=== PATIENT | female | born 1970 | race Two or more races ===

== ENCOUNTER → 2024-05-17 | Outpatient (CLI) | payer MEDICAID, SELFPAY ==
--- NOTE | 2024-05-17 09:00 | XR_ITS ---
Examination: Screening digital mammography, bilateral Computer aided detection 3-D breast Tomosynthesis, bilateral Date and time of exam: May 17, 2024 0906 hours Indication: Screening, family history, sister, breast cancer Technique: Nonmagnified MLO, CC views of the breasts to been obtained, reconstructed from 3-D Tomosynthesis images. R2 computer aided detection program utilized for evaluation of suspicious masses and/or abnormal calcifications. 3-D Tomosynthesis images obtained. Findings: Scattered areas of fibroglandular density 12 mm focal asymmetry upper outer left breast 6 mm focal asymmetry slightly outer left breast CC view posterior depth, 7.2 cm from the nipple Impression: BI-RADS Category 0: Incomplete: Need additional imaging evaluation 12 mm focal asymmetry upper outer left breast, recommend follow-up spot tomographic views 6 mm focal asymmetry slightly outer left breast posterior depth, recommend spot tomographic views upper outer quadrant left breast posterior depth, recommend left breast sonography to complete the workup
== END | disposition home or self-care (01) ==
PROVIDERS: Referring Provider Physician Assistant; Visit Provider Physician Assistant
DX: Z12.31 Encounter for screening mammogram for malignant neoplasm of breast (principal); R92.8 Other abnormal and inconclusive findings on diagnostic imaging of breast; N64.89 Other specified disorders of breast
CPT/HCPCS: 77063; 77067

== ENCOUNTER 2024-05-19 18:18 | Emergency (ER) | payer MEDICAID, SELFPAY ==
[2024-05-19 19:01] VITALS: BP 121/80; PULSE 83; RESP 16; TEMP 37.1; O2SAT 95; BMI 37.2
--- NOTE | 2024-05-19 19:11 | XR_ITS ---
Examination: Ribs, left, with PA chest, 5 views Technique: Chest PA, RIBS AP, RPO, LPO, AP coned lower ribs 5 views Exam date and time: May 19, 2024 1917 hrs. Indications: Patient fell today with injury to the left chest, left rib pain Findings: Normal heart size No pneumothorax No acute rib fractures Impression: No pneumothorax, pulmonary contusion or hemothorax No acute rib fractures depicted
--- NOTE | 2024-05-19 19:13 | PD.EDCHEST ---
ED Chest Pain RME/HPI General Chief Complaint: General Adult/Misc Complain Stated Complaint: LEFT SIDE PAIN S/P FALL AT 1600 Time Seen by Provider: 05/19/24 18:42 Arrival date/time: 05/19/24 18:18 53F with history of DM presents to ED with L side/lower rib pain after slipping off off stool today. Patient denies hitting her head/neck as well as gait abnormality. Patient also denies N/V. Limitations: no limitations Related Data Previous Rx's ?Medication ?Instructions ?Recorded metformin 500 mg tablet 500 mg PO BID #30 tabs 05/07/18 albuterol sulfate 90 mcg/actuation 2 puff inhalation QID PRN 05/22/19 aerosol inhaler shortness of breath or wheezing #18 grams cetirizine 10 mg tablet (Zyrtec) 10 mg PO QDAY allergies #30 tabs 05/22/19 metformin 500 mg tablet 500 mg PO BID #60 tabs 05/22/19 ibuprofen 600 mg tablet 600 mg PO QID #30 tabs 05/01/22 sulfamethoxazole 800 1 tab PO BID PRN cellulitis #10 05/01/22 mg-trimethoprim 160 mg tablet tabs (Bactrim DS) ibuprofen 600 mg tablet 600 mg PO TID PRN pain #30 tabs 03/24/23 Allergies Allergy/AdvReac Type Severity Reaction Status Date / Time No Known Allergies Allergy Verified 05/19/24 18:21 Review of Systems Review of Systems Systems Reviewed: All systems reviewed, normal except as documented Constitutional Constitutional: Reports system reviewed and no additional complaints, except as documented, Denies fever(s) and Denies headache(s) ENT Ears, Nose, Mouth, and Throat: Denies disequilibrium and Denies headache(s) Cardiovascular Cardiovascular: Reports system reviewed and no additional complaints, except as documented, Denies chest pain and Denies dyspnea Respiratory Respiratory: Reports system reviewed and no additional complaints, except as documented, Denies cough and Denies dyspnea Gastrointestinal Gastrointestinal: Reports system reviewed and no additional complaints, except as documented, Denies abdominal pain, Denies nausea and Denies vomiting Genitourinary Genitourinary: Reports as per HPI and Reports flank pain Neurologic Neurologic: Reports system reviewed and no additional complaints, except as documented, Denies confusion, Denies disequilibrium and Denies headache(s) Psychiatric Psychiatric: Denies confusion Past Medical History Past Medical History CARDIAC: Negative Congestive Heart Failure RESPIRATORY: Negative Chronic Obstructive Pulmonary Disease (COPD) GENITOURINARY: Negative Renal Disease ENDOCRINE: Negative Diabetes Mellitus Type 1 or Diabetes Mellitus Type 2 Surgical History SURGICAL: Positive Section Social History SMOKING STATUS: Never smoker ED Exam General Limitations: Present no limitations General appearance: Present alert and in no apparent distress Head Head exam: Present atraumatic Eye Eye exam: Present normal appearance, PERRL and EOMI ENT ENT exam: Present normal exam, normal oropharynx and mucous membranes moist Neck Neck exam: Present normal inspection, full ROM and trachea midline Chest Chest inspection: Present symmetric chest wall rise and tenderness (L lower rib) Respiratory Respiratory exam: Present normal lung sounds bilaterally Cardiovascular Cardiovascular exam: Present regular rate, normal rhythm and normal heart sounds Abdominal Exam Abdominal exam: Present soft and normal bowel sounds Extremities Exam Extremities exam: Present normal inspection and full ROM Back Exam Back exam: Present normal inspection and full ROM Neurological Exam Neurological exam: Present alert, oriented X3 and CN II-XII intact Psychiatric Psychiatric exam: Present normal affect and normal mood Skin Skin exam: Present warm, dry, intact and normal color Course Quality Measures none Orders Category Date Time Status CT chest wo con Stat Exams 05/19/24 19:40 Completed XR ribs LT min 3V w CXR1V Stat Exams 05/19/24 19:11 Completed Vital Signs Vital signs: Vital Signs Temperature 98.7 F 05/19/24 19:01 Pulse Rate 83 05/19/24 19:01 Respiratory Rate 16 05/19/24 19:01 Blood Pressure 121/80 05/19/24 19:01 Pulse Oximetry (%) 95 05/19/24 19:01 Oxygen Delivery Method Room Air 05/19/24 19:01 O2 at 95% on RA and WNLs Chest Pain MDM Narrative MDM Narrative:: 53F with history of DM presents to ED with L side/lower rib pain after slipping off off stool today. Patient denies hitting her head/neck as well as gait abnormality. Patient also denies N/V. Physical exam reveals normal pupil response and EOM. ENT clear. No neck/back midline tenderness. L lower rib/side tenderness, but clear lungs. No ab tenderness. No hip tenderness. Patient is afebrile, calm, and alert. XR and CT normal. Patient data External records reviewed:: [facility] previous records Clinical information provided by:: patient Social determinants that could affect healthcare access:: none Patient has the following chronic illnesses:: DM How is presenting disease/condition affected by chronic disease/condition?: no chronic disease Evaluation data The following diagnostics were reviewed and interpreted by me:: radiology exam(s) Lab and/or radiology exams considered but not ordered:: ordered Interpretation Summary: above Medications / Prescriptions Medications or Prescriptions considered but not ordered:: not ordered Medication administrations:: n/a Consultations Consultation(s) initiated? (list below): No Diagnosis Chest Pain Differential Diagnosis: fracture of rib, pneumothorax, stable angina, unstable angina pectoris, atypical chest pain, st elevation myocardial infarction, costochondritis, chest pain, biliary colic and other (rib contusion) Most likely diagnosis given after review of the tests above:: rib contusion Admission Indicated Admission indicated?: not indicated Admission Request Was there a request for admission?: No Disposition Plan Disposition Plan: Discharge Discharge Attestation Discharge Attestation: The patient and all family members were given an opportunity to ask questions and understood the discharge instructions. Discharge instructions specifically effects, indications for sooner follow up or return to the emergency department, and the expected course of current diagnosis. Patient condition: Stable Discharge Plan Plan Patient Disposition: HOME (Self Care) Disposition Comment: Stable Prescriptions/Referrals Prescriptions/Med Rec: No Action metformin 500 mg tablet 500 mg PO BID Qty: 30 0RF metformin 500 mg tablet 500 mg PO BID Qty: 60 0RF albuterol sulfate 90 mcg/actuation HFA aerosol inhaler 2 puff INH QID PRN (Reason: shortness of breath or wheezing) Qty: 18 0RF cetirizine [Zyrtec] 10 mg tablet 10 mg PO QDAY Qty: 30 0RF ibuprofen 600 mg tablet 600 mg PO TID PRN (Reason: pain) Qty: 30 0RF sulfamethoxazole-trimethoprim [Bactrim DS] 800-160 mg tablet 1 tab PO BID PRN (Reason: cellulitis) Qty: 10 0RF ibuprofen 600 mg tablet 600 mg PO QID Qty: 30 0RF Referrals: Robin Cha MD [Primary Care Provider] - In 1 week Problem List Clinical Impression: Contusion of rib Patient/Caregiver Discharge Instructions Education Materials: ED Contusion, Rib Additional Instructions: Please follow-up with PCP within 24-48 hours and return immediately if symptoms worsen. Print Language: Albanian Stand Alone Forms: Patient Portal Info Letter PA/[employer] SUPERVISOR Supervising Physician PA/[employer] SUPERVISOR Supervising Physician: Dr. Garg
--- NOTE | 2024-05-19 19:40 | XR_ITS ---
Examination: CT chest, without intravenous contrast. Sagittal and coronal 2-D reconstructions. Exam date and time: May 19, 2024 1941 hrs. Indications: Patient fell today with injury to the chest, chest pain CTDI:vol (mGy) 15 DLP: (mGycm) 528 Technique: Multiple 3.0 mm axial sections of the chest to been obtained. Bone and lung density settings are obtained. Sagittal and coronal 2-D reconstructions have been obtained. Low dose protocols were performed. One or more of the following dose reduction techniques were used; automated exposure control, adjustment of the mA and/or KV according to patient size, use of iterative reconstruction technique. Findings: Thoracic aorta pulmonary arteries intact No hemopericardium No pneumothorax pulmonary contusion or hemothorax No visualized liver splenic or renal laceration Abdominal aorta intact The manubrium the body the sternum intact No thoracic vertebral body compression fracture Ribs appear intact Impression: Thoracic aorta pulmonary arteries intact No hemopericardium, pneumothorax, pulmonary contusion or hemothorax No visualized abdominal parenchymal laceration Osseous structures appear intact
[2024-05-19 22:39] VITALS: BP 127/64; PULSE 78; RESP 19; TEMP 37.1; O2SAT 99
== END 2024-05-19 22:39 | disposition home or self-care (01) ==
PROVIDERS: Emergency Provider Emergency Medicine; PCP Family Medicine
DX: S20.219A Contusion of unspecified front wall of thorax, initial encounter (principal); W17.89XA Other fall from one level to another, initial encounter
CPT/HCPCS: 71101; 71250; 99284

== ENCOUNTER → 2024-07-14 | Outpatient (CLI) | payer MEDICAID, SELFPAY ==
--- NOTE | 2024-07-14 08:30 | XR_ITS ---
Examination: Breast ultrasound, unilateral, left complete Date and time of exam: July 14, 2024 0859 hours INDICATIONS: Mammogram May 17, 2024 6 mm focal asymmetry outer left breast CC view posterior depth 7.2 cm from the nipple, 12 mm focal asymmetry upper outer left breast Technique: Real-time olmedo scale ultrasonographic imaging performed left breast including all 4 quadrants as well as nipple retroareolar and axillary region. Findings: 3:00 cyst 4 x 4 by 4 mm No solid nodules IMPRESSION: BI-RADS Category 2: Benign findings
--- NOTE | 2024-07-14 09:00 | XR_ITS ---
Examination: Diagnostic digital mammography, unilateral, left Computer aided detection 3-D breast Tomosynthesis, unilateral Date and time of exam: July 14, 2024 0936 hours INDICATIONS: Mammogram May 17, 2024, 12 mm 6 mm focal asymmetries left breast Technique: Nonmagnified MLO, CC views of the left breast have been obtained, reconstructed from 3-D Tomosynthesis images. R2 computer aided detection program utilized for evaluation of suspicious masses and/or abnormal calcifications. 3-D Tomosynthesis images obtained. Findings: Scattered areas of fibroglandular density Focal asymmetry remains upper left breast posterior depth on the spot compression views Impression: BI-RADS category 3: Probably benign findings Recommend 1 additional 6 month left breast sonogram follow-up to document stability of 12:00 focal asymmetry left breast
== END | disposition home or self-care (01) ==
LOC: CDIM 08:37
PROVIDERS: Referring Provider Physician Assistant; Visit Provider Physician Assistant
DX: R92.332 Mammographic heterogeneous density, left breast (principal); N64.89 Other specified disorders of breast
CPT/HCPCS: 76641; 77061; 77065; G0279

== ENCOUNTER 2024-10-13 08:23 | Emergency (ER) | payer MEDICAID, SELFPAY ==
[2024-10-13 08:24] VITALS: BMI 34.0
--- NOTE | 2024-10-13 08:26 | EKG_ITS ---
[facility] Test Date: 2024-10-13 Pat Name: POONAM SALAZAR Department: Room: - Gender: Female Regional Sales Engineer: : 1970 Requested By: ED Temporary Provider Order Number: [id number] Reading MD: ED Temporary Provider Measurements Intervals [place] Rate: 75 P: 50 VA: 119 QRS: 48 QRSD: 85 T: 37 QT: 396 QTc: 444 Interpretive Statements SINUS RHYTHM WITH SHORT VA INTERVAL LOW QRS VOLTAGE IN PRECORDIAL LEADS [QRS DEFLECTION < 1.0 mV IN CHEST LEADS] Compared to ECG 06/15/2023 14:38:22 Low QRS voltage now present /store/S0/[id number]/ecg/[id number].pdf
--- NOTE | 2024-10-13 08:29 | XR_ITS ---
Examination: PA lateral chest 2 views TECHNIQUE: Upright PA lateral chest 2 views Date and time: October 13, 2024 0913 hours Comparison May 19, 2024 Patient: Chest pain today. FINDINGS: Normal heart size Lungs are clear. Osseous structures are intact IMPRESSION: No active disease
--- NOTE | 2024-10-13 08:37 | PD.EDRME ---
Rapid Medical Screening Exam RME Arrival date/time: 10/13/24 08:23 54-year-old female presents to the Emergency Department today for complaints of chest pain Chief Complaint: Chest Pain
[2024-10-13 08:38] VITALS: BP 125/84; PULSE 77; RESP 18; TEMP 36.8; O2SAT 98; BMI 32.9
[2024-10-13 09:15] LABS: Basophils # (Auto) 0.1 Thou/mm3 (0.0-0.2); Basophils % (Auto) 1 % (0-2.5); Eosinophils # (Auto) 1.4 Thou/mm3 (0.0-0.5); Eosinophils % (Auto) 14 % (0-10); Hematocrit 43.6 % (36.0-46.0); Immature Granulocytes % (Auto) 0 % (0-0); Immature Granulocytes Auto 0.01 Thou/mm3 (0.00-0.00); Lymphocytes # (Auto) 3.2 Thou/mm3 (1.0-4.8); Lymphocytes % (Auto) 34 % (10-50); Mean Corpuscular HGB Conc 32.1 g/dl (31.0-37.0); Mean Corpuscular Hemoglobin 29.1 pg (25.0-35.0); Mean Corpuscular Volume 91 fL (80-100); Monocytes # (Auto) 0.5 Thou/mm3 (0.0-0.8); Monocytes % (Auto) 5 % (0-12); Neutrophils # (Auto) 4.4 Thou/mm3 (1.8-7.7); Neutrophils % (Auto) 46 % (37-80); Nucleated Red Blood Cell % 0 /100 WBC (0); Platelet Count 253 Thou/mm3 (140-440); RDW Standard Deviation 45.3 fL (36.4-46.3); Red Blood Count 4.81 Miln/mm3 (4.00-5.20); White Blood Count 9.6 Thou/mm3 (3.6-11.0)
[2024-10-13 09:32] LABS: Partial Thromboplastin Time 27.8 Seconds (22.0-36.0); Prothrombin Time 10.9 Seconds (9.0-12.2)
[2024-10-13 09:34] LABS: B-Type Natriuretic Peptide 54 pg/mL (0-100)
[2024-10-13 09:36] LABS: Alanine Aminotransferase 16 U/L (10-49); Albumin/Globulin Ratio 1.4 (1.2-2.2); Alkaline Phosphatase 87 U/L (46-116); Anion Gap 9 (7-16); Aspartate Amino Transferase 17 U/L (0-34); BUN/Creatinine Ratio 28 Ratio (12-20); Bilirubin,Total 0.5 mg/dL (0.3-1.2); Blood Urea Nitrogen 14 mg/dL (9-23); Calcium 8.5 mg/dL (8.3-10.6); Calcium (Corrected) 8.5 mg/dL (8.5-10.1); Carbon Dioxide 29.9 mMol/L (20.0-31.0); Chloride 104 mMol/L (98-107); Creatinine (Component) 0.5 mg/dL (0.6-1.3); Estimated Creatinine Clearance 124.4 mL/min (>60); Globulin 2.9 gm/dL (2.3-3.5); Glucose 134 mg/dL (74-106); Magnesium 1.6 mg/dL (1.6-2.6); Osmolality,Calculated 287 (275-295); Potassium 3.9 mMol/L (3.4-5.1); Sodium 143 mMol/L (136-145); Total Protein 6.9 gm/dL (5.7-8.2); Troponin I < 0.002 ng/mL (0.0-0.045); eGFR > 60 See Note
[2024-10-13 09:47] LABS: Amphetamine/Methamp Scrn,U Negative (Negative); Barbiturate Screen,Urine Negative (Negative); Benzodiazepines Screen,Urine Negative (Negative); Benzoylecgonine Screen, Ur Negative (Negative); Fentanyl Screen,Urine Negative (Negative); Opiate Screen,Urine Negative (Negative); THC Screen,Urine Negative (Negative)
[2024-10-13 11:36] VITALS: BP 122/78; PULSE 79; RESP 16; O2SAT 99
--- NOTE | 2024-10-13 11:42 | EDNOTE_ITS ---
<Statement entered by Jessika Hastings MD - 10/24/24 06:19> As co-signing physician, I was present and available for consult prn. I concur with the plan and care as documented by the midlevel provider. ED Chest Pain RME/HPI General Chief Complaint: Chest Pain Stated Complaint: CHEST PAIN SINCE 0600 Time Seen by Provider: 10/13/24 11:17 Arrival date/time: 10/13/24 08:23 RME / HPI RME / HPI narrative: 54-year-old female presents to the Emergency Department today for complaints of chest pain. Onset of symptoms since 6:00 this morning. Described as dull ache, severity moderate. Patient pain is more on the left upper chest wall, reproducible with palpation. Patient denies any cough denies any radiation of pain denies any shortness of breath denies any fever denies any other complaints. Related Data Previous Rx's ?Medication ?Instructions ?Recorded metformin 500 mg tablet 500 mg PO BID #30 tabs 05/07 albuterol sulfate 90 mcg/actuation 2 puff inhalation Q ID PRN 05/22/19 aerosol inhaler shortness of breath or wheez ing #18 grams cetirizine 10 mg tablet (Zyrtec) 10 mg PO QDAY allergi es #30 tabs 05/22/19 metformin 500 mg tablet 500 mg PO BID #60 tabs 05/22 ibuprofen 600 mg tablet 600 mg PO QID #30 tabs 05/01 sulfamethoxazole 800 1 tab PO BID PRN cellulitis #10 05/01/22 mg-trimethoprim 160 mg tablet tabs (Bactrim DS) ibuprofen 600 mg tablet 600 mg PO TID PRN pain #30 t abs 03/24/23 naproxen 500 mg tablet 500 mg PO BID PRN pain #30 t abs 05/19/24 ibuprofen 600 mg tablet 600 mg PO Q8H PRN pain #30 t abs 10/13/24 Allergies Allergy/AdvReac Type Severity Reaction Status Date / Time No Known Allergies Allergy Verified 10/13/24 08:24 Review of Systems Review of Systems Narrative Review of Systems: Review of system reviewed and within normal limits except mentioned in HPI ED Exam Narrative Physical exam: VITAL SIGNS: Reviewed. GENERAL APPEARANCE: Alert and interactive, follows commands, no acute distress, HEAD AND FACE: Non-traumatic. ENT: PERRL, pink conjunctivitis, eyelid no trauma, Mucous membrane moist. NECK: Supple, nontender, no nuchal rigidity. CHEST: Left chest wall tenderness, no crepitus, no paradoxical movement, no retractions. LUNGS: Clear, well ventilated, symmetric, no rales, no wheezing, no ronchi, no stridor, good breath sounds bilaterally. HEART: Regular rate, regular rhythm, no murmur, no gallops. ABDOMEN: Soft, positive bowel sounds, nondistended, no guarding, nontender, no rebound, no masses, RECTAL: Deferred. GENITAL: Deferred. NEUROLOGICAL: Gross motor function intact sensory function intact, Appropriate for age. MUSCULOSKELETAL: low back nontender, full range of motion. EXTREMITIES: Nontender, full range of motion. SKIN: Color pink, dry, no rash, no lacerations, no abrasions, no contusions. LYMPHATICS: Deferred. Course Quality Measures none Orders Category Date Time Status EKG (ED ONLY) *Do not use* NOW Care 10/13/24 08:26 Completed EKG (ED Only) Stat Exams 10/13/24 08:26 Draft XR chest 2V Stat Exams 10/13/24 08:29 Completed B-Type Natriuretic Peptide Stat Lab 10/13/24 09:02 Completed CBC Stat Lab 10/13/24 09:02 Completed Comprehensive Metabolic Panel Stat Lab 10/13/24 09:02 Completed Drug Screen,Urine Stat Lab 10/13/24 09:25 Completed Magnesium Stat Lab 10/13/24 09:02 Completed Partial Thromboplastin Time Stat Lab 10/13/24 09:02 Completed Prothrombin Time with INR Stat Lab 10/13/24 09:02 Completed Troponin I Stat Lab 10/13/24 09:02 Completed Ketorolac Inj [Toradol Inj] Med 10/13/24 11:39 Discontinued 30 mg IM X1 ONE Vital Signs Vital signs: Vital Signs Temperature 98.2 F 10/13/24 08:38 Pulse Rate 77 10/13/24 08:38 Respiratory Rate 18 10/13/24 08:38 Blood Pressure 125/84 10/13/24 08:38 Pulse Oximetry (%) 98 10/13/24 08:38 Oxygen Delivery Method Room Air 10/13/24 08:38 Chest Pain MDM Narrative MDM Narrative:: 54-year-old female presents to the Emergency Department today for complaints of chest pain. Onset of symptoms since 6:00 this morning. Described as dull ache, severity moderate. Patient pain is more on the left upper chest wall, reproducible with palpation. Patient denies any cough denies any radiation of pain denies any shortness of breath denies any fever denies any other complaints. Patient's cardiac workup all came back unremarkable troponin is normal, repeat troponin is not needed at this time patient had chest pain more than 3 hours prior to being seen in the ED. Initially. EKG as interpreted by me shows sinus rhythm, ventricular rate of 75 bpm, no ST segment elevation or depression noted. I personally reviewed and interpreted the x-ray of this patient. There is no acute abnormalities found, no infiltrates no pneumothorax no hemothorax normal chest x-ray. Review of other structures was without significant abnormal findings also. I additionally reviewed the radiologist report and agree with the interpretation. Patient chest pain is reproducible with palpation. I believe patient is having costochondritis. Was given Toradol IM with significant improvement of symptoms Patient data External records reviewed:: None Clinical information provided by:: patient Social determinants that could affect healthcare access:: none Patient has the following chronic illnesses:: None How is presenting disease/condition affected by chronic disease/condition?: no chronic disease Evaluation data The following diagnostics were reviewed and interpreted by me:: lab results, radiology exam(s) and EKG tracing(s) Lab and/or radiology exams considered but not ordered:: None Interpretation Summary: See results in [facility] Medications / Prescriptions Medications or Prescriptions considered but not ordered:: None Medication administrations:: Medication Administration History Discontinued Medications Ketorolac Tromethamine (Ketorolac Inj 60 Mg/2 Ml Vial) 30 mg IM X1 ONE Stop: 10/13/24 11:40 Toradol IM Consultations Consultation(s) initiated? (list below): No Diagnosis Chest Pain Differential Diagnosis: stable angina, atypical chest pain and costochondritis Most likely diagnosis given after review of the tests above:: Costochondritis Admission Indicated Admission indicated?: not indicated Explain why admission is indicated or not indicated:: Stable Admission Request Was there a request for admission?: No Disposition Plan Disposition Plan: Discharge Discharge Attestation Discharge Attestation: The patient was given an opportunity to ask questions and understood the discharge instructions. Discharge instructions specifically effects, indications for sooner follow up or return to the emergency department, and the expected course of current diagnosis. Patient condition: Stable Discharge Plan Plan Patient Disposition: HOME (Self Care) Discharge Disposition comment: stable Prescriptions/Referrals Prescriptions/Med Rec: New ibuprofen 600 mg tablet 600 mg PO Q8H PRN (Reason: pain) Qty: 30 0RF No Action metformin 500 mg tablet 500 mg PO BID Qty: 30 0RF metformin 500 mg tablet 500 mg PO BID Qty: 60 0RF albuterol sulfate 90 mcg/actuation HFA aerosol inhaler 2 puff INH QID PRN (Reason: shortness of breath or wheezing) Qty: 18 0RF cetirizine [Zyrtec] 10 mg tablet 10 mg PO QDAY Qty: 30 0RF ibuprofen 600 mg tablet 600 mg PO TID PRN (Reason: pain) Qty: 30 0RF naproxen 500 mg tablet 500 mg PO BID PRN (Reason: pain) Qty: 30 0RF sulfamethoxazole-trimethoprim [Bactrim DS] 800-160 mg tablet 1 tab PO BID PRN (Reason: cellulitis) Qty: 10 0RF ibuprofen 600 mg tablet 600 mg PO QID Qty: 30 0RF Referrals: Robin Cha MD [Primary Care Provider] - In 1 week Problem List Clinical Impression: Chest pain, Costalchondritis Patient/Caregiver Discharge Instructions Discharge Activity: activity as tolerated Education Materials: Costochondritis Additional Instructions: Thank you for the opportunity for serving you today. You are stable for discharged . You are advised to: Follow-up with your PCP in 1 to 2 days Return to ED for worsening of symptoms Increase oral fluids Take medication as prescribed Print Language: [place] Islander Stand Alone Forms: Candace Award Info., Patient Portal Info Letter LAVINIA/MARGOTH Supervising Physician LAVINIA/MARGOTH Supervising Physician: MD Jodee
[2024-10-13] MEDS: KETOROLAC INJ 60 MG/2 ML VIAL 30 MG IM (11:48)
[2024-10-13 12:42] VITALS: BP 122/78; PULSE 77
== END 2024-10-13 12:43 | disposition home or self-care (01) ==
PROVIDERS: Nurse Practitioner Primary Care; Emergency Provider Emergency Medicine; PCP Family Medicine
DX: M94.0 Chondrocostal junction syndrome [Tietze] (principal); R94.31 Abnormal electrocardiogram [ECG] [EKG]
CPT/HCPCS: 36415; 71046; 80053; 80307; 83735; 83880; 84484; 85025; 85610; 85730; 93005; 96372; 99283; J1885